=== PATIENT | female | born 1955 | race Caucasian/White ===

== ENCOUNTER 2018-09-13 00:50 | Inpatient (IN) ==
[2018-09-13 06:36] LABS: Hematocrit 46.1 % (35.3-44.9); Hemoglobin 15.3 g/dL (11.5-15.4); Mean Corpuscular HGB Conc 33.2 g/dL (31.6-35.5); Mean Corpuscular Hemoglobin 29.6 pg (28.0-33.3); Mean Corpuscular Volume 89.2 fL (83.0-100.0); Mean Platelet Volume 10.6 fL (9.4-12.4); Platelet Count 180 K/mcL (140-400); Red Blood Count 5.17 M/mcL (3.82-4.97); Red Cell Distribution Width 13.6 % (11.5-14.5)
[2018-09-13 06:53] LABS: INR 1.1; Prothrombin Time 11.9 Seconds (9.4-12.1)
[2018-09-13 06:57] LABS: Alanine Aminotransferase 29 Units/L (7-52); Albumin 3.8 g/dL (3.5-5.7); Albumin/Globulin Ratio 1.3 (1.1-2.2); Alkaline Phosphatase 93 Units/L (34-104); Aspartate Amino Transferase 30 Units/L (13-39); BUN/Creatinine Ratio 23 (6-26); Bilirubin,Total 0.6 mg/dL (0.3-1.0); Blood Urea Nitrogen 20 mg/dL (8-23); Calcium 9.1 mg/dL (8.6-10.3); Carbon Dioxide 26 mEq/L (23-29); Chloride 105 mEq/L (98-107); Glucose 113 mg/dL (70-105); Osmolality,Calculated 287 (280-300); Potassium 4.6 mEq/L (3.5-5.1); Sodium 137 mEq/L (136-145); Total Protein 6.8 g/dL (6.4-8.9); eGFR For Non-African Americans > 60 (> 60)
[2018-09-13 07:02] LABS: Troponin I 1.55 ng/mL (< 0.04)
[2018-09-13] MEDS ORDERED: *HR* Enoxaparin 40 MG/0.4 ML SYRINGE SQ ONE (08:47)
[2018-09-13] MEDS ORDERED: *HR* Heparin 5,000 UNIT/ML VIAL IVP PRN ×2 (09:06)
[2018-09-13] MEDS ORDERED: *HR* Heparin 5,000 UNIT/ML VIAL IVP ONE (09:06)
[2018-09-13] MEDS ORDERED: Acetaminophen 325 MG TABLET PO PRN (09:08)
[2018-09-13] MEDS ORDERED: Naloxone 0.4 MG/ML INJ IVP PRN (09:08)
[2018-09-13] MEDS ORDERED: Heparin 25,000 UNIT/500 ML D5W 25,000 UNIT/500 ML BAG IVC SCH (09:15)
--- NOTE | 2018-09-13 09:23 | Internal Med History&Physical ---
Date of Encounter: 09/13/18 Time of Encounter: 09:15 Internal Medicine - H&P: HPI Chief complaint: Altered mental status Admitted From: Intrahospital Transfer Plans for Post Hospital Care: Home History of present illness: Ms. URIAS is a 62 year old female with a past medical history of hypertension, borderline hyperlipidemia and diet controlled currently diabetes who is transferred from [facility] altered mental status. The patient was initially brought to [facility] via ambulance for altered mental status. The patient states that she was apparently normal at around 8 PM when she left her boyfriend's home after having dinner and was pulled over because she was driving erratically on the road. She does claim that she was feeling as if the windshield was foggy and she started feeling very apprehensive and anxious. She denies any chest pain, shortness of breath, difficulty breathi ng of any sort. She was then brought to [facility] and evaluated. She received an EKG which showed sinus tachycardia. She was also found to be hypertensive with blood pressure reading in the 160s systolic in the field. She was given a dose of aspirin 325. She was placed on cardiac monitoring and pulse oximetry was checked. She was found to be 84% on room air and she does not have an history of COPD. The initial EKG at [facility] did not show an evidence of ST elevation or depression. Heart it was elevated. She denies ingesting or inhaling any recreational drugs. Her symptoms of altered mental status completely disappeared when she was monitored at the [facility]. She had an ABG which was essentially normal except for hypoxia PO2 of 59.2. Fingerstick glucose on arrival to the hospital was 116 and TSH was 2.46 and was normal free T4 was also within normal limits at 0.93 INR was 1.4 . Alcohol level was less than 3 initial troponin was 0.579 and was elevated at [facility]. There was a stroke evaluation done by [facility] and a CT scan of the brain did not show any acute strokes. UA showed a pH of 7.0 specific gravity 1.015 trace glucose negative bilirubin negative leuk esterase and nitrites. CBC at [place] was abnormal. Her hemato crit was 50 and hemoglobin was 17.1. With segmental lymphocytes of 71.4% and absolute neutrophil count of 9.4. CMP was reviewed as well showed a sodium of 139 potassium 4.0 chloride 103 glucose 1:30 8B UN of 23 and creatinine of 1.65. A baseline creatinine is unknown Alkaline phosphatase is 118 normal SGOT and SGPT. She was given 1 L of fluid bolus normal saline in addition to aspirin and nitrog lycerin. A portable chest x-ray did not show any focal infiltrates as per the report. A CT scan of the head and brain without IV contrast also did not show evidence of acute intracranial abnormality. There was mild chronic white matter small vessel ischemic disease. Since coming to [place] the patient has been alert and oriented 3 and denied having any chest pain or shortness of breath. She does appear anxious and is inquiring about her diagnosis and plan of management Off note, the creatinine here at [facility] is normal 0.86 and hemoglobin is also better at 15. Past Med Surg Social Fam HX - Past Medical History Medical history: hyperlipidemia, hypertension Psychiatric history: depression - Past Surgical History Surgical History: - Social History Smoking Status: Never smoker Smokeless Tobacco Status: No Alcohol use: none Drug use: none - Family History Mother Adopted: No Family Member Ethnicity: Non- Living Status: Age at : 71 Hx Family Genitourinary Disorders: Yes - Additional Family History Additional family history: She has a family history of early heart attack and her brother and her sister in their 60s Internal Medicine - H&P: Meds Amitriptyline [Elavil] 25 mg PO HS 09/13/18 [History] Calcium 1,000 + D3 Caplet 1,000 mg PO DAILY 09/13/18 [History] Eligen B12 Tablet 1,000 mg PO DAILY 09/13/18 [History] Furosemide [Lasix] 40 mg PO DAILY 09/13/18 [History] Loratadine [Allergy Relief] 10 mg PO DAILY 09/13/18 [History] Losartan 50 mg PO DAILY 09/13/18 [History] Potassium Chloride [Klor-Con 10] 10 meq PO DAILY 09/13/18 [History] Allergy/AdvReac Type Severity Reaction Status Date / Time No Known Allergies Allergy Verified 09/13/18 03:39 All Systems PM: A 10-system review of systems was performed and is negative for pertinent findings except as documented above in the HPI. - Constitutional Vitals: Temp Pulse Resp BP Pulse Ox 98.1 F 123 18 104/73 95 09/13/18 05:51 09/13/18 05:51 09/13/18 05:51 09/13/18 05:51 09/13/18 05:51 General appearance: Present: cooperative, A&O X 3, pleasant, answers questions appropriately Exam: See below - Head Head exam: Present: atraumatic, normocephalic - Eye Eye exam: Present: PERRL, conjuntiva pink, sclera anicteric Pupils: Present: PERRL - Neck Neck exam general surgery: Present: supple, trachea midline. Absent: lymphadenopathy - Respiratory Respiratory exam: Present: CTAB. Absent: accessory muscle use, rales, rhonchi, wheezes - Cardiovascular Cardiovascular exam: Present: +S1, +S2, tachycardia. Absent: bradycardia, diastolic murmur, gallop, JVD, rubs, systolic murmur - GI/Abdominal GI/Abdominal exam: Present: normal bowel sounds, soft, no peritoneal signs. Absent: distended, tenderness - Extremities Exam Extremities exam: Present: pedal edema (Bilateral 1+ pitting edema up to the medication), warm, radial pulses palpable and symmetrical. Absent: calf tenderness, cyanotic - Neurological Exam Neurological exam: Present: CN II-XII intact, oriented X3, no focal deficits. Absent: pronater drift, facial droop, speech deficit - Skin Skin exam: Present: dry, intact Internal Med - H&P Results - Labs CBC & Chem 7: 09/13/18 06:24 09/13/18 06:24 Labs: Short CBC 09/13/18 Range/Units 06:24 WBC 13.2 H (4.3-11.1) K/mcL Hgb 15.3 (11.5-15.4) g/dL Hct 46.1 H (35.3-44.9) % Plt Count 180 (140-400) K/mcL BMP 09/13/18 06:24 Sodium 137 Potassium 4.6 Chloride 105 Carbon Dioxide 26 BUN 20 Creatinine 0.86 Glucose 113 H Calcium 9.1 Cardiac Enzymes 09/13/18 Range/Units 06:24 Troponin I 1.55 H* (< 0.04) ng/mL Liver Function 09/13/18 Range/Units 06:24 Total Bilirubin 0.6 (0.3-1.0) mg/dL AST 30 (13-39) Units/L ALT 29 (7-52) Units/L Alkaline Phosphatase 93 (34-104) Units/L Albumin 3.8 (3.5-5.7) g/dL - EKG Data -: EKG Interpreted by Myself Rate: tachycardia - EKG Data Prior EKG available for review: yes When compared to previous EKG: there is no significant change (Continues to be tachycardic) - Assessment and plan (1) Non-STEMI (non-ST elevated myocardial infarction) Current Visit: Yes Status: Acute Assessment and plan: Patient does not have any chest pain. Her only symptoms are altered mental status which has now completely resolved. She does give me history that roughly about a week ago she had left upper quadrant abdominal pain with it was associated with some belching which the patient did not pay any significant attention to. Given her family history and the elevation of the troponins, I think a workup and management of non-STEMI especially in the setting of normal creatinine is indicated. I will start her on a heparin drip low-dose ACS protocol. Consult cardiology. Check 2-D echo place on cardiac telemetry monitoring. Given the patient And hypoxia, I will also check a CT scan pulmonary embolism protocol. Patient already received 325 of aspirin at the other facility. Her EKG does not show any ST elevation or depression but only sinus tachycardia. Consider adding beta blockers to her regimen. TSH was checked at the outside hospital and was normal. Check lipid panel (2) Hypoxia Current Visit: Yes Status: Acute Assessment and plan: Hypoxia in the setting of tachycardia. Patient does not have any recent immobilization or surgeries and has not undertaken any long trips. Her chest x- ray was reportedly normal at the outside hospital without any focal infiltrates. She does not have a history of COPD and is a nonsmoker. I would like to rule out pulmonary embolism given the sudden onset of hypoxia and slight bump in her troponins with a CAT scan PE protocol. She is responding nicely to supplemental oxygen which is favorable although does not completely rule out a pulmonary embolism. I have already started her on anticoagulation (3) Essential hypertension Current Visit: Yes Status: Acute Assessment and plan: We will resume the patient's ARB. Consider adding beta blockers. Monitor closely. (4) Hyperlipidemia Current Visit: Yes Status: Acute Qualifiers: Hyperlipidemia type: unspecified Qualified Code(s): E78.5 - Hyperlipidemia, unspecified (5) Diet-controlled diabetes mellitus Current Visit: Yes Status: Acute Assessment and plan: Serial Accu-Cheks with every meal and at nighttime. For now I will hold off on patient including low-dose insulin correctional dose. (6) Metabolic encephalopathy Current Visit: Yes Status: Acute Assessment and plan: Until etiology. At this moment is completely resolved. Patient underwent a stroke workup by remote collaboration with [facility] at [facility]. Their recommendation was to obtain an MRI of the brain which I will order. Initial CAT scan was negative for any acute stroke. Consider neurology evaluation if mental status worsens again. She currently has a normal neurological exam with no focal deficits that I could appreciate on physical exam - Time Spent With Patient Total time spent is greater than 50% in coordination of care (as documented) at patient's floor/unit and/or counseling patient:75 min - VTE Reasons for not Prescribing Prophylaxis: Not indicated-Anticoagulated or INR therapeutic
[2018-09-13] MEDS ORDERED: Isovue-370 500 ML BOTTLE IVP ONE (09:37)
[2018-09-13 11:38] LABS: Hematocrit 46.3 % (35.3-44.9); Hemoglobin 15.2 g/dL (11.5-15.4); Mean Corpuscular HGB Conc 32.8 g/dL (31.6-35.5); Mean Corpuscular Hemoglobin 29.6 pg (28.0-33.3); Mean Corpuscular Volume 90.1 fL (83.0-100.0); Mean Platelet Volume 10.8 fL (9.4-12.4); Platelet Count 182 K/mcL (140-400); Red Blood Count 5.14 M/mcL (3.82-4.97)
[2018-09-13 11:44] LABS: INR 1.1; Prothrombin Time 11.9 Seconds (9.4-12.1)
[2018-09-13] MEDS ORDERED: Perflutren Lipid Microsphere 1.3 ML in 0.9 % Sodium Chloride 8.7 ML IVP ONE (13:05)
--- NOTE | 2018-09-13 13:41 | Cardiology Consult Note ---
<Nikki Dang - Last Filed: 09/13/18 13:58> Date of Encounter: 09/13/18 Time of Encounter: 13:00 Assessment and Plan (1) Non-STEMI (non-ST elevated myocardial infarction) Current Visit: Yes Status: Acute Troponin elevated at 1.55 and 1.51, type 2 likely secondary [address] CT image notes findings of airspace disease. She has no chest pain and had no chest pain when her troponin were found to be elevated. She denies any previous history of coronary artery disease. At the outside facility she was noted to have sinus tachycardia without any ST changes. Can continue heparin for 48 hours. TTE pending. -Further recommendations by Dr. Shannon (2) Essential hypertension Current Visit: Yes Status: Acute Essential hypertension, blood pressure stable at this time. She is also tachycardic with slightly elevated WBC. She may have underlying infectious cause for the elevated WBC and tacycardia. Continue home antihypertensives. Discussion w patient/family: The assessment and plan as outlined above was discussed with the patient and/or family members who expressed understanding and agreement. All questions were answered. Thank you for involving us in the care of your patient. Please call with any questions. History of Present Illness Consult date: 09/13/18 Requesting physician: Leslie Rust Consult reason: elevated troponin History of present illness: Ms. URIAS is a 62 year old female with past medical history of HTN, HLD and diet controlled diabetes who was presented to [place] from [facility] due to altered mental status. She was driving home at 8 pm yesterday after having dinner with her boyfriend and during the drive home she was found to be driving erratically and was pulled over by police and brought to [place] via EMS. Her EKG at [place] showed sinus tachycardia and she was found to be hypertensive with systolic blood pressure in 160s. Her oxygen saturation was 84% and her ABG showed hypoxia of 59.2. This morning she is resting in bed and has no recollections of the event that occurred yesterday. She denies any chest pain and denies any history of chest pain or shortness of breath. Past Med Surg Social Fam HX - Past Medical History Medical history: hyperlipidemia, hypertension Psychiatric history: depression - Past Surgical History Surgical History: - Social History Smoking Status: Never smoker Smokeless Tobacco Status: No Alcohol use: none Drug use: none - Family History Mother Adopted: No Family Member Ethnicity: Non- Living Status: Age at : 71 Hx Family Genitourinary Disorders: Yes Medications and Allergies Calcium 1,000 + D3 Caplet 1,000 mg PO DAILY 09/13/18 [History] Eligen B12 Tablet 1,000 mg PO DAILY 09/13/18 [History] Losartan 50 mg PO DAILY 09/13/18 [History] RX: Amitriptyline [Elavil] 25 mg PO HS 09/13/18 [History] RX: Furosemide [Lasix] 40 mg PO DAILY 09/13/18 [History] RX: Loratadine [Allergy Relief] 10 mg PO DAILY 09/13/18 [History] RX: Potassium Chloride [Klor-Con 10] 10 meq PO DAILY 09/13/18 [History] Allergy/AdvReac Type Severity Reaction Status Date / Time No Known Allergies Allergy Verified 09/13/18 03:39 All Systems Review: The remainder of the systems were reviewed and are negative - Constitutional Constitutional: no chills, no fever(s), no weakness - Cardiovascular Cardiovascular: no chest pain at rest, no chest pain with exertion, no dyspnea at rest, no dyspnea on exertion, no palpitations, no paroxysmal nocturnal dyspnea - Respiratory Respiratory: no cough, no dyspnea - Gastrointestinal Gastrointestinal: no abdominal pain, no hematochezia, no melena - Genitourinary Genitourinary: no dysuria, no hematuria - Musculoskeletal Musculoskeletal: no muscle weakness, no myalgias - Integumentary Integumentary: no erythema, no rash - Neurological Neurological: no focal weakness, no numbness Physical Examination General: Conversant, No Apparent Distress HEENT: Atraumatic, Normocephaly, Mucus Membranes Moist Neck: No JVD, Normal carotid pulses Cardiac: Normal S1 and S2, No Murmur, Other (tachycardic) Lungs: Normal Breath Sounds, No Wheeze, Rales, Rhonchi Neuro: Alert and responsive, No focal deficits noted Abdomen: Soft, Non-Tender Skin: No rashes noted on visualized skin Musculoskeletal: No Chest Wall Tenderness Extremities: Normal Pulses, Other (+1 pitting edema bilateral lower extremities) Results 09/13/18 11:01 09/13/18 06:24 Lab Results 09/13/18 09/13/1819 06:24 06:24 06:24 WBC 13.2 H Hgb 15.3 Hct 46.1 H Plt Count 180 INR 1.1 Sodium 137 Potassium 4.6 Chloride 105 Carbon Dioxide 26 BUN 20 Creatinine 0.86 Glucose 113 H Calcium 9.1 Total Bilirubin 0.6 AST 30 ALT 29 Alkaline Phosphatase 93 Troponin I 1.55 H* B-Natriuretic Peptide 09/13/18 09/13/18 09/13/18 11:01 11:01 11:01 WBC 13.4 H Hgb 15.2 Hct 46.3 H Plt Count 182 INR 1.1 Sodium Potassium Chloride Carbon Dioxide BUN Creatinine Glucose Calcium Total Bilirubin AST ALT Alkaline Phosphatase Troponin I B-Natriuretic Peptide 489 H 09/13/18 11:01 WBC Hgb Hct Plt Count INR Sodium Potassium Chloride Carbon Dioxide BUN Creatinine Glucose Calcium Total Bilirubin AST ALT Alkaline Phosphatase Troponin I 1.51 H* B-Natriuretic Peptide Consult Discharge Plan - Plan Referrals: NONE,PCP [Primary Care Provider] - <Parker Shannon - Last Filed: 09/13/18 15:23> Date of Encounter: 09/13/18 - Attending Attestation I examined this patient and my medical decision-making was reviewed with the Resident Physician. I agree with the documented findings, disposition and treatment plan as described except to the extent set forth below. Admitted with mental status changes. Noted to have elevated troponin. Denies any chest pain or SOB. Will check echo and treat medically. Continue work up for etiology of mental status changes. Assessment and Plan Discussion w patient/family: The assessment and plan as outlined above was discussed with the patient and/or family members who expressed understanding and agreement. All questions were answered. Thank you for involving us in the care of your patient. Please call with any questions. History of Present Illness History of present illness: Ms. URIAS is a 62 year old female All Systems Review: The remainder of the systems were reviewed and are negative Results 09/13/18 11:01 09/13/18 06:24 Lab Results 09/13/18 09/13/18 09/13/18 06:24 06:24 06:24 WBC 13.2 H Hgb 15.3 Hct 46.1 H Plt Count 180 INR 1.1 Sodium 137 Potassium 4.6 Chloride 105 Carbon Dioxide 26 BUN 20 Creatinine 0.86 Glucose 113 H Calcium 9.1 Total Bilirubin 0.6 AST 30 ALT 29 Alkaline Phosphatase 93 Troponin I 1.55 H* B-Natriuretic Peptide 09/13/18 09/13/18 09/13/18 11:01 11:01 11:01 WBC 13.4 H Hgb 15.2 Hct 46.3 H Plt Count 182 INR 1.1 Sodium Potassium Chloride Carbon Dioxide BUN Creatinine Glucose Calcium Total Bilirubin AST ALT Alkaline Phosphatase Troponin I B-Natriuretic Peptide 489 H 09/13/18 11:01 WBC Hgb Hct Plt Count INR Sodium Potassium Chloride Carbon Dioxide BUN Creatinine Glucose Calcium Total Bilirubin AST ALT Alkaline Phosphatase Troponin I 1.51 H* B-Natriuretic Peptide
[2018-09-13] MEDS: Levofloxacin 500 MG/100 ML 500 MG/100 ML BAG IVPB SCH (17:46)
[2018-09-13 17:57] LABS: Hematocrit 50.1 % (35.3-44.9); Hemoglobin 16.3 g/dL (11.5-15.4); Mean Corpuscular HGB Conc 32.5 g/dL (31.6-35.5); Mean Platelet Volume 10.9 fL (9.4-12.4); Platelet Count 206 K/mcL (140-400); Red Blood Count 5.63 M/mcL (3.82-4.97); Red Cell Distribution Width 13.9 % (11.5-14.5)
[2018-09-13 18:05] LABS: Heparin anti-factor XA UFH 0.53 IU/mL (0.30-0.70)
[2018-09-13 18:06] LABS: INR 1.1; Prothrombin Time 12.4 Seconds (9.4-12.1)
[2018-09-13] MEDS: Heparin 25,000 UNIT/500 ML D5W 25,000 UNIT/500 ML BAG IVC SCH (19:53)
[2018-09-14] MEDS ORDERED: *HR* Enoxaparin 40 MG/0.4 ML SYRINGE SQ SCH (06:00)
[2018-09-14 06:41] LABS: Basophils % 0.2 %; Hematocrit 45.8 % (35.3-44.9); Immature Granulocytes % 0.3 % (0-4); Lymphocytes # 3.6 K/mcL (0.6-4.6); Lymphocytes % 20.6 %; Mean Corpuscular HGB Conc 32.8 g/dL (31.6-35.5); Mean Corpuscular Hemoglobin 29.7 pg (28.0-33.3); Mean Corpuscular Volume 90.7 fL (83.0-100.0); Mean Platelet Volume 10.9 fL (9.4-12.4); Monocytes # 1.7 K/mcL (0.0-1.3); Monocytes % 9.9 %; Platelet Count 166 K/mcL (140-400); Red Blood Count 5.05 M/mcL (3.82-4.97); Red Cell Distribution Width 14.2 % (11.5-14.5)
[2018-09-14 07:05] LABS: BUN/Creatinine Ratio 18 (6-26); Blood Urea Nitrogen 13 mg/dL (8-23); Calcium 9.4 mg/dL (8.6-10.3); Carbon Dioxide 28 mEq/L (23-29); Chloride 101 mEq/L (98-107); Chol/HDL Ratio 2.7 (0-4.9); Cholesterol 147 mg/dL (< 200); Glucose 111 mg/dL (70-105); HDL Cholesterol 54 mg/dL (40-59); LDL Cholesterol,Calculated 78 mg/dL (0-99); Osmolality,Calculated 287 (280-300); Potassium 4.7 mEq/L (3.5-5.1); Sodium 138 mEq/L (136-145); Triglycerides 77 mg/dL (< 150); eGFR For Non-African Americans > 60 (> 60)
[2018-09-14 07:07] LABS: Troponin I 0.93 ng/mL (< 0.04)
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
[2018-09-14] MEDS ORDERED: Aspirin Enteric Coated 325 MG Tablet PO SCH (09:00)
[2018-09-14] MEDS: Aspirin Enteric Coated 81 MG Tablet PO SCH (09:52)
--- NOTE | 2018-09-14 10:24 | Cardiology Progress Note ---
Date of Encounter: 09/14/18 Time of Encounter: 10:21 Assessment and Plan (1) Non-STEMI (non-ST elevated myocardial infarction) Current Visit: Yes Status: Acute Troponin peak was initial on admission, 1.55 and has continued to downtrend--most recent 0.93. In setting of pneumonia. CTA negative for PE. Presented with mental status changes. Brain MRI moderate chronic small vessel ischemic changes. No acute brain abnormality. On heparin gtt. Denies chest pain or prior CAD hx. Started ASA, Statin, BB, ARB. ECG sinus tach, no acute ischemic changes. TTE completed--LVEF 30%. Left ventricular systolic dysfunction that appears to spare the basal segments. There is no LV thrombus. Recommend C. R/B/A discussed. Pt agrees to proceed. Plan for [facility] on Sunday. Will peripherally follow until then. (2) Cardiomyopathy Current Visit: Yes Status: Acute EF 30% on TTE. New diagnosis--unclear chronicity. NICMP vs ICMP. C Sunday to evaluate. Continue BB and ARB. Mild LE edema on exam. BNP 489. Trace bilateral pleural effusions on chest CTA, likely reactive. Start PO Lasix 40mg daily. Recommend 2L fluid restriction, low Na diet, daily weights, strict I/Os. Qualifiers: Cardiomyopathy type: unspecified Qualified Code(s): I42.9 - Cardiomyopathy, unspecified Discussion w patient/family: The assessment and plan as outlined above was discussed with the patient and/or family members who expressed understanding and agreement. All questions were answered. Thank you for involving us in the care of your patient. Please call with any questions. I will discuss all the above with Dr. Estela Shannon and make changes as necessary. Subjective Principal diagnosis: NSTEMI, CMP Interval history: No acute complaints this AM. Denies chest pain or dyspnea. TTE resulted--LVEF 30%. Normal LV chamber size, wall thickness. Left ventricular systolic dysfunction that appears to spare the basal segments. There is no LV thrombus. Objective Vital Signs, Last 4 Hours Temp Pulse Resp BP Pulse Ox 09/14/18 07:27 98.1 F 108 16 109/74 95 Vital Signs Temp Pulse Resp BP Pulse Ox 09/14/18 07:27 98.1 F 108 16 109/74 95 09/14/18 02:16 98.1 F 106 18 116/79 94 02/08/19 22:20 98 F 105 18 114/75 92 09/13/18 20:06 98 F 110 20 118/80 91 09/13/18 16:00 98.5 F 111 22 122/93 91 Intake and Output 09/13/18 09/14/18 09/14/18 23:59 07:59 15:59 Intake Total 400 / 400 224 / 224 Output Total 125 / 125 150 / 150 Balance 275 / 275 74 / 74 Intake: IV Fluids 400 / 400 224 / 224 Heparin 25,000 UNIT/500 ML D5W 300 / 300 224 / 224 25,000 unit In 500 ml @ 10.5 UNIT/KG/HR 19.509 mls/hr IVC . Q24H CHERYL Rx#:[id number] Levaquin Premix 500mg/100mL 500 100 / 100 mg In 100 ml @ 100 mls/hr IVPB Q24H CH[facility] Rx#:[id number] Output: Urine 125 / 125 150 / 150 Other: # Voids 1 Weight 91.8 kg Blood Glucose* 117 77 Patient Weight 09/14/18 23:59 Weight 91.8 kg Vital Signs Temp Pulse Resp BP Pulse Ox 09/14/18 07:27 98.1 F 108 16 109/74 95 09/14/18 02:16 98.1 F 106 18 116/79 94 09/13/18 22:20 98 F 105 18 114/75 92 09/13/18 20:06 98 F 110 20 118/80 91 09/13/18 16:00 98.5 F 111 22 122/93 91 Intake and Output 09/13/18 09/14/18 09/14/18 23:59 07:59 15:59 Intake Total 400 / 400 224 / 224 Output Total 125 / 125 150 / 150 Balance 275 / 275 / 74 Intake: IV Fluids 400 / 400 224 / 224 Heparin 25,000 UNIT/500 ML D5W 300 / 300 224 / 224 25,000 unit In 500 ml @ 10.5 UNIT/KG/HR 19.509 mls/hr IVC . Q24H [facility] Rx#:[id number] Levaquin Premix 500mg/100mL 500 100 / 100 mg In 100 ml @ 100 mls/hr IVPB Q24H [facility] Rx#:[id number] Output: Urine 125 / 125 150 / 150 Other: # Voids 1 Weight 91.8 kg Blood Glucose* 117 77 Patient Weight 09/14/18 23:59 Weight 91.8 kg General: Conversant, No Apparent Distress HEENT: Atraumatic, Normocephaly, Mucus Membranes Moist Neck: No JVD, Normal carotid pulses Cardiac: Reg Rate and Rhythm, Normal S1 and S2, No Murmur Lungs: Normal Breath Sounds, No Wheeze, Rales, Rhonchi Neuro: Alert and responsive, No focal deficits noted Abdomen: Soft, Non-Tender Skin: No rashes noted on visualized skin Musculoskeletal: No Chest Wall Tenderness Extremities: Other (mild BLE edema) Results 09/14/18 06:23 09/14/18 06:23 Lab Results 09/13/18 09/13/18 09/13/18 11:01 11:01 11:01 WBC 13.4 H Hgb 15.2 Hct 46.3 H Plt Count 182 INR 1.1 Sodium Potassium Chloride Carbon Dioxide BUN Creatinine Glucose Calcium Troponin I B-Natriuretic Peptide 489 H 09/13/18 09/13/18 09/13/18 11:01 17:40 17:40 WBC 18.4 H Hgb 16.3 H Hct 50.1 H Plt Count 206 INR Sodium Potassium Chloride Carbon Dioxide BUN Creatinine Glucose Calcium Troponin I 1.51 H* 1.27 H* B-Natriuretic Peptide 09/13/18 09/14/18 09/14/18 17:40 00:02 06:23 WBC 17.5 H Hgb 15.0 Hct 45.8 H Plt Count 166 INR 1.1 Sodium Cancelled Potassium Cancelled Chloride Cancelled Carbon Dioxide Cancelled BUN Cancelled Creatinine Cancelled Glucose Cancelled Calcium Cancelled Troponin I 1.26 H* B-Natriuretic Peptide 09/14/18 06:23 WBC Hgb Hct Plt Count INR Sodium 138 Potassium 4.7 Chloride 101 Carbon Dioxide 28 BUN 13 Creatinine 0.72 Glucose 111 H Calcium 9.4 Troponin I 0.93 H* B-Natriuretic Peptide Short CBC 09/14/18 09/13/18 09/13/18 Range/Units 06:23 17:40 11:01 WBC 17.5 H 18.4 H 13.4 H (4.3-11.1) K/mcL Hgb 15.0 16.3 H 15.2 (11.5-15.4) g/dL Hct 45.8 H 50.1 H 46.3 H (35.3-44.9) % Plt Count 166 206 182 (140-400) K/mcL Neutrophils # 12.0 H (1.6-8.9) K/mcL BMP 09/14/18 09/14/18 Range/Units 06:23 00:02 Sodium 138 Cancelled Potassium 4.7 Cancelled Chloride 101 Cancelled Carbon Dioxide 28 Cancelled BUN 13 Cancelled Creatinine 0.72 Cancelled Glucose 111 H Cancelled Calcium 9.4 Cancelled Cardiac Enzymes 09/14/18 09/14/18 09/13/18 Range/Units 06:23 00:02 17:40 Troponin I 0.93 H* 1.26 H* 1.27 H* (< 0.04) ng/mL 09/13/18 Range/Units 11:01 Troponin I 1.51 H* (< 0.04) ng/mL Impressions Echocardiogram Limited Views 09/13/18 09:12 Impressions: LVEF 30%. Normal LV chamber size, wall thickness. Left ventricular systolic dysfunction that appears to spare the basal segments. There is no LV thrombus. Discussed with cardiology service. Left Ventricular Wall Motion: Rest Echo Findings The apex, apical inferior, mid inferior, apical anterior, mid anterior, apical septal, mid inferior septal, apical lateral, mid anterior lateral, mid anterior septal and mid inferior lateral del angel were hypokinetic. All other wall segments showed normal motion. Findings: Study Quality * Technically adequate exam. ECG Findings * Sinus tachycardia. Left Ventricle * LVEF 30%. * Normal LV chamber size, wall thickness. * Left ventricular systolic dysfunction that appears to spare the basal segments. * There is no LV thrombus. Right Ventricle * Normal right ventricular structure and function. Brain MRI 09/13/18 09:14 IMPRESSION: Moderate chronic small vessel ischemic changes. No acute brain parenchymal abnormality. D/ / 09/13/2018 10:30:32 Ana Paiz MD / jenny Interpreting Provider: Ana Paiz MD Chest CTA 09/13/18 09:37 IMPRESSION: 1. No evidence of pulmonary embolism. 2. There is prominent central bronchial wall thickening in the perihilar regions extending to the subsegmental branches of the lower lobes, right middle lobe and lingula. Given the bilateral and relatively symmetric distribution, this most likely is related to infection. 3. Trace bilateral pleural effusions are likely reactive in nature. 4. Minor consolidation noted in the left lower lobe and to a lesser extent the right costophrenic angle. Pneumonia or aspiration are possibilities and follow-up radiographs are recommended. D/ / Juan Miller MD / Juan Miller MD Interpreting Provider: Juan Miller MD Active Medications Acetaminophen (Tylenol) 650 mg PO Q6HR PRN PRN Reason: Mild Pain/Fever Stop: 03/15/19 09:09 Last Admin: 09/13/18 17:46 Dose: 650 mg Aspirin (Aspirin Ec) 81 mg PO DAILY [facility] Stop: 03/16/19 09:46 Last Admin: 09/14/18 09:52 Dose: 81 mg Atorvastatin Calcium (Lipitor) 40 mg PO HS [facility] Stop: 03/16/19 21:01 Levofloxacin/Dextrose (Levaquin Premix 500mg/100ml) 500 mg in 100 mls @ 100 mls /hr IVPB Q24H [facility]; Protocol Stop: 03/15/19 15:01 Last Infusion: 09/13/18 18:51 Dose: Infused Heparin Sodium/Dextrose (Heparin 25,000 Unit/500 Ml D5w) 25,000 unit in 500 mls @ 19.509 mls/hr IVC .Q24H [facility]; Protocol Stop: 03/15/19 15:01 Last Titration: 09/14/18 07:24 Dose: 10.5 unit/kg/hr, 19.509 mls/hr Losartan Potassium (Cozaar) 50 mg PO DAILY [facility] Stop: 03/15/19 09:16 Last Admin: 09/14/18 09:52 Dose: 50 mg Metoprolol Tartrate (Lopressor) 25 mg PO BID [facility] Stop: 03/15/19 14:31 Last Admin: 09/14/18 09:52 Dose: 25 mg Naloxone HCl (Narcan) 0.4 mg IVP Q2MIN PRN PRN Reason: SEE COMMENTS Stop: 03/15/19 09:09 - Imaging and Cardiology Echo: report reviewed - EKG Interpretation EKG results cardiology: other (12 hr tele AVG HR 102, SR) - VTE Reasons for not Prescribing Prophylaxis: Not indicated-Anticoagulated or INR therapeutic Consult Discharge Plan - Plan Referrals: Estuardo Lanza, ASHU [Non-Partnered Physician] - (Unable to make follow up appointment due to office being closed on the weekend. Please call Sunday to schedule appointment for 7-10 days from date of discharge. )
[2018-09-14] MEDS: Furosemide 40 MG TABLET PO SCH (11:41)
[2018-09-14 13:18] LABS: Amphetamine Screen,Urine Negative ng/mL (Cutoff=1000); Barbiturate Screen,Urine Negative ng/mL (Cutoff=200); Benzodiazepines Screen,Urine Negative ng/mL (Cutoff=200); Cannabinoid Screen,Urine Negative ng/mL (Cutoff = 50); Cocaine Screen,Urine Negative ng/mL (Cutoff= 300); Opiate Screen,Urine Negative ng/mL (Cutoff=300); Phencyclidine Screen,Urine Negative ng/mL (Cutoff=25)
[2018-09-14] MEDS ORDERED: *HR* Heparin 5,000 UNIT/ML VIAL IVP PRN ×2 (13:51)
[2018-09-14] MEDS: Levofloxacin 500 MG/100 ML 500 MG/100 ML BAG IVPB SCH (17:23)
[2018-09-14] MEDS: Heparin 25,000 UNIT/500 ML D5W 25,000 UNIT/500 ML BAG IVC SCH (21:53)
[2018-09-15 07:47] LABS: Hematocrit 44.5 % (35.3-44.9); Hemoglobin 14.8 g/dL (11.5-15.4); Immature Platelets 6.5 % (1.1-6.1); Mean Corpuscular HGB Conc 33.3 g/dL (31.6-35.5); Mean Corpuscular Hemoglobin 29.5 pg (28.0-33.3); Mean Corpuscular Volume 88.6 fL (83.0-100.0); Mean Platelet Volume 10.9 fL (9.4-12.4); Red Blood Count 5.02 M/mcL (3.82-4.97); Red Cell Distribution Width 14.3 % (11.5-14.5)
[2018-09-15 08:21] LABS: BUN/Creatinine Ratio 19 (6-26); Blood Urea Nitrogen 14 mg/dL (8-23); Calcium 9.3 mg/dL (8.6-10.3); Carbon Dioxide 28 mEq/L (23-29); Chloride 104 mEq/L (98-107); Glucose 107 mg/dL (70-105); Osmolality,Calculated 285 (280-300); Potassium 3.7 mEq/L (3.5-5.1); Sodium 137 mEq/L (136-145); eGFR For Non-African Americans > 60 (> 60)
[2018-09-15] MEDS: Metoprolol XL (24 HR) Succ 50 MG TAB.ER.24H PO SCH (09:02)
[2018-09-15] MEDS: Furosemide 40 MG TABLET PO SCH (09:02)
[2018-09-15] MEDS: Aspirin Enteric Coated 81 MG Tablet PO SCH (09:03)
--- NOTE | 2018-09-15 10:45 | Event Note ---
Date of Encounter: 09/15/18 Time of Encounter: 10:40 - Cardiology Event Note CP free. On IV Hep gtt. Plan for [place] tomorrow. All questions answered.
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
[2018-09-15] MEDS: Levofloxacin 500 MG/100 ML 500 MG/100 ML BAG IVPB SCH (14:57)
[2018-09-15] MEDS: *HR* Heparin 5,000 UNIT/ML VIAL SQ SCH (21:23)
[2018-09-16] MEDS: *HR* Heparin 5,000 UNIT/ML VIAL SQ SCH ×3 (05:35→21:25)
[2018-09-16 07:04] LABS: Hematocrit 46.4 % (35.3-44.9); Hemoglobin 14.9 g/dL (11.5-15.4); Mean Corpuscular HGB Conc 32.1 g/dL (31.6-35.5); Mean Corpuscular Hemoglobin 29.4 pg (28.0-33.3); Mean Corpuscular Volume 91.5 fL (83.0-100.0); Mean Platelet Volume 11.5 fL (9.4-12.4); Platelet Count 169 K/mcL (140-400); Red Blood Count 5.07 M/mcL (3.82-4.97); Red Cell Distribution Width 14.2 % (11.5-14.5)
[2018-09-16 07:24] LABS: BUN/Creatinine Ratio 19 (6-26); Blood Urea Nitrogen 15 mg/dL (8-23); Calcium 9.3 mg/dL (8.6-10.3); Carbon Dioxide 31 mEq/L (23-29); Chloride 103 mEq/L (98-107); Glucose 101 mg/dL (70-105); Magnesium 1.9 mg/dL (1.6-2.6); Osmolality,Calculated 291 (280-300); Potassium 3.6 mEq/L (3.5-5.1); Sodium 140 mEq/L (136-145); eGFR For Non-African Americans > 60 (> 60)
[2018-09-16] MEDS: Heparin 25,000 UNIT/500 ML D5W 25,000 UNIT/500 ML BAG IVC SCH (07:26)
--- NOTE | 2018-09-16 09:12 | Event Note ---
Date of Encounter: 09/16/18 Time of Encounter: 08:35 - Cardiology Event Note Laboratory Tests 09/16/18 05:52 Creatinine 0.80 Est GFR (Non-Af Amer) > 60 Chest pain-free. Pending catheterization today. All questions answered.
[2018-09-16] MEDS: Furosemide 40 MG TABLET PO SCH (09:58)
[2018-09-16] MEDS: Metoprolol XL (24 HR) Succ 50 MG TAB.ER.24H PO SCH (09:58)
[2018-09-16] MEDS: Aspirin Enteric Coated 81 MG Tablet PO SCH (09:58)
[2018-09-16] MEDS ORDERED: Heparin 1,000 UNITS/500 mL 500 ML ONE (10:08)
[2018-09-16] MEDS ORDERED: Verapamil 5 MG/2 ML VIAL ONE (10:08)
[2018-09-16] MEDS ORDERED: *HR* Heparin 10,000 UNIT/10 ML VIAL ONE (10:08)
[2018-09-16] MEDS ORDERED: ISOVUE-370 200 ML INFUS..BTL ONE (10:08)
[2018-09-16] MEDS ORDERED: Nitroglycerin 1,000 MCG/10 ML VIAL IV ONE (10:08)
[2018-09-16] MEDS ORDERED: 0.9 % Sodium Chloride 1,000 ML ONE ×2 (10:08→10:10)
[2018-09-16] MEDS ORDERED: *HR* Midazolam HCl 2 MG/2 ML VIAL ONE (10:09)
[2018-09-16] MEDS ORDERED: *HR* FentaNYL (PF) 100 MCG/2 ML VIAL ONE (10:10)
[2018-09-16] MEDS ORDERED: Nitroglycerin Spray 4.9 GM BOTTLE ONE (10:52)
--- NOTE | 2018-09-16 11:29 | Pre-Sedation Evaluation ---
Pre-sedation evaluation - Pre-sedation checklist Date of procedure: 09/16/18 [facility] Vitals: Last Vital Signs Temp 98.8 F 09/16/18 07:58 Pulse 110 09/16/18 07:58 Resp 18 09/16/18 07:58 BP 116/76 09/16/18 07:58 Pulse Ox 96 09/16/18 07:58 H&P (including ROS) documented in medical record: Yes Previous reaction to sedatives/anesthetics: No Dietary Status: NPO after Midnight Airway Assessment: Patient can open mouth completely, TMJ function normal ASA Classification *see protocol: CLASS II-Mild systemic disease Plan of Care: Pt appropriate candidate for procedure/moderate/conscious sedation, Risks/benefits of procedure/sedation discussed w/ patient/family Cardiac Registry (Cardio Only) - Functional Capacity Functional Capacity: >=4 METS with symptoms - Clincal Frailty Scale Clinical Frailty Scale: Managing Well
--- NOTE | 2018-09-16 11:37 | Invasive Diagnostic Lab Proc ---
Name: Betty Perez Date of Study: 09/16/2018 Date: 1955 Ht: 64.2in Medical Record#: [id number] Age: 62 Wt: 200.62lb Gender: Female BSA: 1.96 Order #: [id number] BMI: 34.25 Physicians Procedure Physician: Raimundo Phillips MD, FACC Referring MD: Referring MD: Staff Name Position Time In Ramona Patricio RN Monitor 10:16 AM Connie Benjamin RN Soft Sugar Supervisor 10:16 AM Dillan Smart RT (R) Scrub 10:41 AM Indications Indication Non-Stemi Procedures Performed Procedure L HRT ARTERY/VENTRICLE ANGIO Pre-Procedure Checklist Informed consent is complete signed and on chart. H&P is on chart. ID band is on and ID verified with patient. Patient NPO for procedure The procedure was described for the patient and questions were answered. ECG is on chart. Plan of Care Patient will tolerate the procedure without complications. Adequate level of comfort will be maintained. Hemodynamics will remain stable Patient will recover from procedure without complications. Respiratory function will be maintained. Cardiac rhythm will remain stable. Patient temperature will be maintained. Patient and/or family have verbalized understanding of the procedure. Patient Education Chief Complaint/Reason for Test: Cardiac Cath Developmental Category: Adult (18-64 years) Developmentally Appropriate for Age: Yes Learning Barriers: None Education Needs: Procedure Education Method: Verbal Information Taught: Cardiac Cath Educational Evaluation: Able to repeat information Intravenous Access Time IV Size Location DC'd Fluid/Drip Rate Units RN 22g 1" Patent On Arrival Rt Antecubital 0.9NaCl ml Allergies No Known Allergies Vital Signs Time BP (mmHg) HR (bpm) O2 Sat. RR (bpm) LOC 11:03 AM / % 4 = Oriented but drowsy 11:03 AM / % 4 = Oriented but drowsy 10:50 AM 137 / 88 116 87 % 16 10:55 AM 126 / 75 112 86 % 15 10:59 AM 108 / 69 104 88 % 10 11:04 AM 116 / 73 103 92 % 16 11:10 AM 113 / 70 103 91 % 26 11:14 AM 112 / 71 104 93 % 16 11:20 AM 115 / 70 104 94 % 18 Procedural Medications Time Medication Dose Units Method Given By 10:51 AM Oxygen 2 L/min nasal cannula Connie Benjamin RN 10:51 AM Versed 2 mg Intravenous Connie Benjamin RN 10:51 AM Fentanyl 50 mcg Intravenous Connie Benjamin RN 11:02 AM Oxygen 4 L/min nasal cannula Connie Benjamin RN 11:02 AM Nitro [place] 400 mcg Sublingual Connie Benjamin RN 11:04 AM Lidocaine 2% 0.5 ml Subcutaneous Raimundo Phillips MD, [facility] 11:07 AM Heparin 4000 units Nitroglycerin 200 mcg Verapamil 2.5 mg Intraarterial Raimundo Phillips MD, [facility] 11:10 AM Lidocaine 2% 19 ml Subcutaneous Raimundo Phillips MD, [facility] ASA Classification: CLASS II- Mild systemic disease (i.e. well-controlled diabetes, hypertension, asthma, cigarette smoking) Main Score Preprocedure Postprocedure Activity 2- Moves 4 extremities sustained head lift Activity 2- Moves 4 extremities sustained head lift Circulation 2- SBP +/= 20 points of pre-anesthetic level Circulation 2- SBP +/= 20 points of pre-anesthetic level Consciousness 2- Awake and alert oriented x 3 Consciousness 2- Awake and alert oriented x 3 O2 Saturation 2- Able to maintain O2 satruation of 92% on room air O2 Saturation 2- Able to maintain O2 satruation of 92% on room air Respiratory 2- Able to deep breathe and cough well Respiratory 2- Able to deep breathe and cough well Total Score 10 Total Score 10 Contrast Agent: Isovue Diagnostic Contrast: 83 ml Total Contrast: 83 ml Fluoro Dose: 2203 mGy Procedure Log Time Note Enter By 10:16 AM Ramona Patricio RN Position: Monitor Time in: 10:16 [facility] 10:17 AM Connie Benjamin RN Position: Soft Sugar Supervisor Time in: 10:16 [facility] 10:17 AM Patient charges- Angio tray pack, Navilyst 3mm J, Pulse Oximetry and ACIST tubing and transducer [facility] 10:41 AM Dillan Smart RT (R) Position: Scrub Time in: 10:41 [facility] 10:41 AM Pt arrived to chemistry laboratory technician 2 at 10:41 [facility] 10:42 AM Physician arrived 10:42 [facility] 10:42 AM Meet and greet completed [facility] 10:42 AM Sign in performed according to hospital policy. Informed consent was obtained. oummers 10:42 AM Procedure start 10:42 [facility] 10:42 AM ASA Class CLASS II- Mild systemic disease (i.e. well-controlled diabetes, hypertension, asthma, cigarette smoking) tsoummers 10:42 AM CathStat 10:43 AM removed right hand 20g IV for radial ts[facility]ers 10:49 AM Vitals capture started with the following parameters, Patient=Adult, Interval=5 min, Initial Qcscxiuh=431 mmHg, Deflation Rate=5 mmHg, Cuff placed on Right Arm 10:50 AM KG=539 bpm, NUDU=339/88 mmhg, SpO2=87.0 %, Resp=16 B/min 10:51 AM Recorded ECG: RY=796 Condition=Condition 1 10:51 AM Time: 10:51 Oxygen on at 2 L/min per nasal cannula by Connie Benjamin RN 10:51 AM Time: 10:51 Versed 2 mg Intravenous Given by Connie Benjamin RN 10:51 AM Time: 10:51 Fentanyl 50 mcg Intravenous Given by Connie Benjamin RNdenise 10:55 AM WI=412 bpm, SVSG=784/75 mmhg, SpO2=86.0 %, Resp=15 B/min 10:59 AM DF=115 bpm, UDLX=263/69 mmhg, SpO2=88.0 %, Resp=10 B/min 11:01 AM Pressure channel 1 zeroed. 11:02 AM Time: 11:02 Oxygen on at 4 L/min per nasal cannula by Connie Benjamin RN 11:03 AM Time: 11:02 Nitro Hollywood 400 mcg Sublingual Given by Connie Benjamin RN 11:03 AM Time: 11:03 Patient comfortable and pain free: Yes [facility] 11:03 AM Time: 11:03LOC: 4 = Oriented but drowsy [facility] 11:04 AM Time out was performed according to hospital policy. Conscious sedation and anesthesia was achieved (see medication log with in this report above) [facility] 11:04 AM WP=105 bpm, HHUP=669/73 mmhg, SpO2=92.0 %, Resp=16 B/min, EtCO2=28 mmHg 11:05 AM Time: 11:04 0.5 ml Lidocaine 2% to right radial Subcutaneous Given by Raimundo Phillips MD, [facility] 11:05 AM ultrasound utilized [facility] 11:06 AM Access obtained by percutaneous puncture. 6Fr 10cm Terumo Glidesheath sheath placed in right Radial artery. [id number] [facility] 11:07 AM Time: :07 Patient given 4,000 units Heparin, 200 mcg Nitroglycerin, and 2.5 mg Verapamil Intraarterial by Raimundo Phillips MD, [facility]. This is given to reduce risk of vessel spasm and thrombosis. oumm 11:07 AM 0.035 260cm Navilyst 3mmJ wire [id number] [facility] 11:07 AM 5Fr TIG catheter inserted over the wire [facility] 11:07 AM wire removed 11:08 AM unable to advance catheter 11:09 AM Catheter removed [facility] 11:09 AM setting up for femoral [facility] 11:10 AM GQ=299 bpm, UMXO=757/70 mmhg, SpO2=91.0 %, Resp=26 B/min, EtCO2=30 mmHg 11:10 AM Time: : 19 ml Lidocaine 2% to right groin Subcutaneous Given by Raimundo Phillips MD, [facility] 11:11 AM Pressure channel 1 zeroed. 11:11 AM Access obtained by percutaneous puncture. 5Fr 10cm Terumo Baylis sheath placed in right Femoral artery. [id number] mm 11:12 AM 0.035 145cm Navilyst 3mmJ wire [id number] [facility] 11:12 AM 5Fr FL 4 catheter inserted over the wire [facility] 11:12 AM wire removed [facility] 11:13 AM LCA angiography performed in multiple views. [facility] 11:13 AM Recorded Pressure: Ao, OE=254, Condition=Condition 1 (Aorta) Ao 97/76/86 11:14 AM Catheter removed 11:14 AM 5Fr FR 4 catheter inserted over the wire [facility] 11:14 AM RCA angiography performed in multiple views. [facility] 11:14 AM SX=226 bpm, FUTZ=742/71 mmhg, SpO2=93.0 %, Resp=16 B/min, EtCO2=32 mmHg 11:15 AM Coronary Dominance: right [facility] 11:16 AM Catheter removed [facility] 11:16 AM 5Fr Pigtail catheter inserted over the wire DNC [facility] 11:16 AM Catheter crossed the aortic valve and was selectively placed in the left ventricle. Pressures recorded on pullback for left heart catheterization. [facility] 11:16 AM Bolus angiogram of left Ventricle complete: 12 ml/sec for a total of 35 mls [facility] 11:17 AM Recorded Pressure: LV, IZ=478, Condition=Condition 1 (Left Ventricle) LV 106/-2/13 11:18 AM Recorded Pressure: LV, Ao, FM=551, Condition=Condition 1 (Left Ventricle) LV 113/3/12, (Aorta) Ao 110/74/90 11:18 AM Time: 11:03 Patient comfortable and pain free: Yes [facility] 11:18 AM Time: 11:03LOC: 4 = Oriented but drowsy [facility] 11:18 AM Catheter removed [facility] 11:18 AM Bolus angiogram of right Femoral complete: 4 ml/sec for a total of 7 mls [facility] 11:18 AM Procedure completed at 11:18 09/16/2018 [facility] 11:19 AM Did you address PARVIN flow and Dominance? Yes [facility] 11:20 AM KC=516 bpm, OLDU=950/70 mmhg, SpO2=94.0 %, Resp=18 B/min 11:20 AM Sign out completed: Radiation Dose 205.08 mGy, 2202.77 cGy/cm2 Fluoro Time: 1.6 Isovue 370 - 200ml contrast 83 ml given by Raimundo Phillips MD, [facility]. Complications: None. 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 Cardiac Rehab Consult needed: NoConfirmed administered medications: Yes [facility] 11:20 AM Isovue 370 - 200ml,1 Bottle(s) used. [facility] 11:20 AM Arterial sheath pulled, Mynx closure device used and was Successful [id number] S/N. [facility] 11:20 AM Estimated Blood Loss: less than 20cc [facility] 11:20 AM Post ECG Sinus Tachycardia [facility] 11:21 AM Post Blood Pressure 115/70 [facility] 11:21 AM 11:21 Post Pulses Rt Radial 1+ [facility] 11:21 AM Information taught Cardiac Cath, Mynx, and Vasc Band [facility] 11:21 AM Education needs Procedure, Plan of Care, and Responsibilities of Patient in Care [facility] 11:21 AM Learning barriers :None [facility] 11:21 AM Education Methods Verbal [facility] 11:21 AM Education evaluation Able to repeat information [facility] 11:21 AM Site status No bleeding/hematoma - Rt Groin as reported by Dillan Smart RT (R) at 11:21 [facility] 11:21 AM Opsite applied [facility] 11:21 AM Plavix, Effient or Brilinta given No [facility]merlin 11:21 AM Delay to floor [facility] 11:21 AM no family present [facility] 11:22 AM Arterial sheath pulled, Vasc Band closure device used and was Successful S/N. [facility]merlin 11:22 AM 11 ml air in Vasc Band. [facility] 11:27 AM Report given to Shahida CARMICHAEL [facility] AM [facility] of [facility]: 11[facility] Complications Complication None Hemodynamics Pressures Site Systolic/A Wave Diastolic/V Wave Mean AO 97 76 86 LV 106 -2 13 LV 113 3 12 AO 110 74 90 Post Procedure Information Blood Pressure: 115/70 mmHg Rhythm: Sinus Tachycardia Closure Device Time Device Success/Fail 09/16/2018 11:22:00 AM Mechanical Compression Successful 09/16/2018 11:22:00 AM MynxGrip Successful Site Checks Time Location Status Staff Sheath In? Note 11:21 AM Rt Groin No bleeding/hematoma Dillan Smart RT (R) Pulses Time Site Pre-Procedure Post-Procedure Note Bilateral DP & PT 2+ Bilateral radial 2+ 11:21:00 AM Rt Radial 1+ Updated by Ramona Patricio RN on 09/16/2018 11:27:45 AM electronically signed on 09/16/2018 11:29:10 AM with status of Final
--- NOTE | 2018-09-16 11:56 | Event Note ---
Date of Encounter: 09/16/18 Time of Encounter: 11:55 - Cardiology Event Note Per Dr. Phillips, [facility] showed Takotsubo CMP, no intervention warranted. Full cath report to follow. On asa, statin, BB, ARB. Cardiology signing off, re-consult PRN, f/u arranged.
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
[2018-09-16] MEDS: Levofloxacin 500 MG/100 ML 500 MG/100 ML BAG IVPB SCH (17:30)
[2018-09-17] MEDS: *HR* Heparin 5,000 UNIT/ML VIAL SQ SCH (05:51)
[2018-09-17 05:52] LABS: Basophils % 0.3 %; Eosinophils # 0.2 K/mcL (0.0-0.6); Eosinophils % 2.1 %; Hematocrit 46.5 % (35.3-44.9); Immature Granulocytes % 0.5 % (0-4); Lymphocytes # 3.1 K/mcL (0.6-4.6); Mean Corpuscular HGB Conc 32.3 g/dL (31.6-35.5); Mean Corpuscular Hemoglobin 28.8 pg (28.0-33.3); Mean Corpuscular Volume 89.3 fL (83.0-100.0); Mean Platelet Volume 11.1 fL (9.4-12.4); Monocytes # 0.8 K/mcL (0.0-1.3); Monocytes % 8.2 %; Neutrophils # 5.3 K/mcL (1.6-8.9); Platelet Count 177 K/mcL (140-400); Red Blood Count 5.21 M/mcL (3.82-4.97); Segmented Neutrophils % 55.9 %
[2018-09-17 06:07] LABS: BUN/Creatinine Ratio 18 (6-26); Blood Urea Nitrogen 14 mg/dL (8-23); Calcium 9.3 mg/dL (8.6-10.3); Carbon Dioxide 27 mEq/L (23-29); Chloride 101 mEq/L (98-107); Glucose 116 mg/dL (70-105); Osmolality,Calculated 285 (280-300); Potassium 3.5 mEq/L (3.5-5.1); Sodium 137 mEq/L (136-145); eGFR For Non-African Americans > 60 (> 60)
[2018-09-17] MEDS: Furosemide 40 MG TABLET PO SCH (09:10)
[2018-09-17] MEDS: Aspirin Enteric Coated 81 MG Tablet PO SCH (09:10)
[2018-09-17] MEDS: Metoprolol XL (24 HR) Succ 50 MG TAB.ER.24H PO SCH (09:11)
[2018-09-17 10:51] VITALS: BP 110/87
--- NOTE | 2018-09-17 11:55 | Discharge Summary ---
Orders not resulted at time of discharge: Pending orders 09/13/18 08:36 EKG [ECG 12 lead ECG] [ECG] Routine Date of Encounter: 09/17/18 Time of Encounter: 11:00 - Discharge Diagnosis (1) Non-STEMI (non-ST elevated myocardial infarction) Priority: Primary Status: Acute (2) Hypoxia Priority: Secondary Status: Acute (3) Essential hypertension Priority: Secondary Status: Acute (4) Hyperlipidemia Priority: Secondary Status: Acute Qualifiers: Hyperlipidemia type: unspecified Qualified Code(s): E78.5 - Hyperlipidemia, unspecified (5) Diet-controlled diabetes mellitus Priority: Secondary Status: Acute (6) Metabolic encephalopathy Priority: Primary Status: Acute (7) Cardiomyopathy Priority: Primary Status: Acute Qualifiers: Cardiomyopathy type: unspecified Qualified Code(s): I42.9 - Cardiomyopathy, unspecified (8) Pneumonia Priority: Primary Status: Acute Qualifiers: Pneumonia type: due to Pneumococcus Laterality: left Lung location: lower lobe of lung Qualified Code(s): J13 - Pneumonia due to Streptococcus pneumoniae Hospital course: Ms. Perez is a 62 year old female present to ER for altered mental status/syncope. Patient was placed on continuous cardiac monitoring. Echo, duplex carotid has been done. Duplex carotid result unremarkable. Echo shows LVEF 30%, which is new. patient also has elevated troponin. Cardiology consult saw patient, had [facility], consider [place]ots[place] CMP, recommend continue aspirin, beta rodri, ARB, and statin. Patient has no further dizziness, syncope, altered mental status when she is in hospital. Patient had CTA to rule out PE, which shows no PE but suspect left lower lobe pneumonia. Patient was treated with Levaquin. After treatment, patient's symptoms has improved. We will DC patient on by mouth medication and continue follow-up with PCP and cardiology as outpatient. I have seen and examined the patient today. Patient denies shortness of breath, cough, leg swelling, or chest pain. Vitals are stable. Patient walking around in the room without difficulty. will DC patient home today. Patient was advised to stop driving at this point, reevaluate by PCP and cardiology, patient shows understanding and agreement. will have home oxygen qualification test prior to discharge, if qualified, will order home oxygen. - Time Spent with Patient Total time spent providing and/or coordinating discharge services:40 minutes Greater than 30 minutes - Discharge Medications Prescriptions: Aspirin Enteric Coated [Aspirin EC] 81 mg PO DAILY 30 Days #30 tablet. Atorvastatin [Lipitor] 40 mg PO HS 30 Days #30 tablet Metoprolol XL (24 HR) Succ [Toprol Xl] 50 mg PO DAILY 30 Days #30 tab.er.24h Home Medications: Amitriptyline [Elavil] 25 mg PO HS 09/13/18 [History] Calcium Carbonate/Vitamin D3 [Calcium 1,000 + D3 Caplet] 1 each PO DAILY 09/13/18 [History] Furosemide [Lasix] 40 mg PO DAILY 09/13/18 [History] Loratadine [Allergy Relief] 10 mg PO DAILY 09/13/18 [History] Losartan Potassium [Cozaar] 50 mg PO DAILY 09/13/18 [History] Potassium Chloride [Klor-Con 10] 10 meq PO DAILY 09/13/18 [History] Cyanocobalamin (Vitamin B-12) [Vitamin B12] 1,000 mcg PO DAILY 09/14/18 [History] Aspirin Enteric Coated [Aspirin EC] 81 mg PO DAILY 30 Days #30 tablet. 09/17/18 [Rx] Atorvastatin [Lipitor] 40 mg PO HS 30 Days #30 tablet 09/17/18 [Rx] Levofloxacin [Levaquin] 750 mg PO DAILY 2 Days #2 tablet 09/17/18 [Rx] Metoprolol XL (24 HR) Succ [Toprol Xl] 50 mg PO DAILY 30 Days #30 tab.er.24h 09/17/18 [Rx] Allergies/Adverse Reactions: Allergy/AdvReac Type Severity Reaction Status Date / Time No Known Allergies Allergy Verified 09/13/18 03:39 Date of admission: 09/13/18 09:08 Primary care physician: PCP NONE Consults: 09/13/18 07:09 Consult to Materials Handling Coordinator [CONS] Routine Reason for SW Consult: Pt does not have insurance 09/13/18 09:39 Consult to Cardiology [CONS] Stat Comment: Consulting Provider: Cardiology Allison Reason for Consult: NSTEMI. Elevated troponin Time Notified: 09:39 Call Completed: Yes 09/16/18 12:26 Consult to Nurse Navigator [CONS] Routine Comment: CHF Discharging clinician: Karthikeyan Miranda Anticipated date of discharge: 09/17/18 - Constitutional Vitals: Temp Pulse Resp BP Pulse Ox 98 F 82 16 110/87 92 09/17/18 10:44 09/17/18 10:44 09/17/18 10:44 09/17/18 10:44 09/17/18 10:44 General appearance: Present: cooperative, A&O X 3, pleasant, answers questions appropriately Exam: Pt is AAO x 3, in NAD HEENT: NC/AT, PERRL Neck: Supple, no JVD, no LAD Lungs: CTA b/l Heart: S1S2, RRR Abd: Soft, nontender, BS present Ext: ROM wnl, no pedal edema Neuro: No focal deficit - Patient Status Disposition: Home, Self-Care Condition: Good Functional capacity at discharge: independent ambulation Overall status at discharge: patient is progressing back to baseline - Discharge Instructions Follow Up With: Estuardo Lanza [employer] [Non-Partnered Physician] - 09/19/18 3:40 pm () - Diet and Activity Activity: increase activity as tolerated Diet: low fat, low cholesterol, low salt diet - VTE Reasons for not Prescribing Prophylaxis: Not indicated-Anticoagulated or INR therapeutic
[2018-09-17] MEDS ORDERED: levoFLOXacin 500 MG TABLET PO SCH ×2 (15:00)
== END 2018-09-17 18:22 | disposition home or self-care (01) | DRG 280 ==
LOC: 2SOUTHHOLD → SUATTDRO 02:29 → 3BNU 19:36
PROVIDERS: ADMIT Family Medicine; ATTEND Internal Medicine